=== PATIENT | female | born 1950 | race Hispanic/Latino ===

== ENCOUNTER 2022-01-12 10:06 | Day surgery (SDC) | payer OTHER ==
[2022-01-12] VITALS (21 sets, daily range): BP systolic 122–157; BP diastolic 71–97
[~2022-01-12 10:06] MED LIST: ACET650S28 PEG; AMLO-258 PEG; ASPI-1197 PEG; ATOR40TA69 PEG; CARV12.511 PEG; CLOP75TA14 PEG; DONE5TAB33 PEG; ENOX40DI9 SQ; ESOM40SU PEG; FLUO40CA7 PEG; INSLAN SQ; LACT10SO9 PEG; LEVO88TA7 PEG; LOSA100T58 PEG; METO10DI2 IV; RIFA200T2 PEG
[2022-01-12] MEDS ORDERED: 0.9%NACL 1000ML 1,000 ML IV ONE (10:48)
[2022-01-12 11:44] LABS: INR 0.97 (0.85-1.15); PROTHROMBIN TIME 10.6 SEC (9.6-11.6)
[2022-01-12 11:45] LABS: PARTIAL THROMBOPLASTIN TIME 25.1 SEC (26.3-35.5)
[2022-01-12] MEDS ORDERED: LIDOCAINE PF 100MG/5ML (2%) SYRINGE 5ML ONE (14:58)
[2022-01-12] MEDS ORDERED: PROPOFOL 10 MG/ML 20ML VIAL IV ONE (14:58)
[2022-01-12] MEDS ORDERED: ROCURONIUM 10MG/1ML SYR 10 MG/ML ML ONE (14:58)
[2022-01-12] MEDS ORDERED: CEFAZOLIN SODIUM 2 GM VIAL IV ONE (15:00)
[2022-01-12] MEDS ORDERED: EPHEDRINE SULFATE 50 MG/ML AMPULE ONE (15:13)
[2022-01-12] MEDS ORDERED: FENTANYL CITRATE PF 50 MCG/1 ML 2ML VIAL ONE (15:37)
[2022-01-12] MEDS ORDERED: BUPIVACAINE/PF 0.25% 30ML VIAL IJ ONE (16:10)
[2022-01-12] MEDS ORDERED: ESMOLOL HCL 10 MG/ML 10 ML VIAL ONE (17:09)
[2022-01-12] MEDS ORDERED: MORPHINE 2 MG SYG ONE (17:54)
[2022-01-12] MEDS ORDERED: MORPHINE 2 MG SYG IVP ONE (18:00)
== END 2022-01-12 21:50 | disposition home or self-care (01) ==
LOC: DAH 10:06
PROVIDERS: ATTEND Student in an Organized Health Care Education/Training Program
DX: K94.23 Gastrostomy malfunction (principal); R13.12 Dysphagia, oropharyngeal phase; E66.01 Morbid (severe) obesity due to excess calories; E11.9 Type 2 diabetes mellitus without complications; D64.9 Anemia, unspecified; I10 Essential (primary) hypertension; E78.5 Hyperlipidemia, unspecified; E03.9 Hypothyroidism, unspecified; Z79.4 Long term (current) use of insulin; Z79.82 Long term (current) use of aspirin; Z79.890 Hormone replacement therapy; Z79.899 Other long term (current) drug therapy; Z79.01 Long term (current) use of anticoagulants; Z86.73 Personal history of transient ischemic attack (TIA), and cerebral infarction without residual deficits
CPT/HCPCS: 43999; 87426; 85610; 85730; 82948 ×2; 36415; 44300; A4663; A4452; A4649 ×2; J0690; J3010; J7030; J3490 ×3; J2001; J2704; A4930; A4215; A4223; A4335; A4222; A4221; A4216; A4520

== ENCOUNTER 2022-02-28 19:25 | Emergency (ER) | payer MEDICARE ==
[~2022-02-28] VITALS: Ht 152.4 cm; Wt 54.0 kg
[2022-02-28 19:44] LABS: BASOPHILS % (AUTO) 0.8 % (0.0-5.0); EOSINOPHILS % (AUTO) 2.6 % (0.0-8.0); HEMATOCRIT 38.7 % (36-48); MEAN CORPUSCULAR HGB CONC 32.6 g/dL (32.0-36.0); MEAN CORPUSCULAR VOLUME 82.9 fL (79-99); MONOCYTES % (AUTO) 6.9 % (3.0-13.0); NEUTROPHILS % (AUTO) 72.3 % (40.0-77.0); PLATELET COUNT (AUTO) 256 K/uL (130-400); RED BLOOD CELL COUNT(AUTO) 4.67 MIL/uL (4.00-5.50); WHITE BLOOD COUNT (AUTO) 10.7 K/uL (4.8-10.8)
[2022-02-28 19:51] LABS: APPEARANCE,URINE CLOUDY (CLEAR); BILIRUBIN,URINE NEGATIVE (NEGATIVE); COLOR,URINE LIGHT-YELLOW (YELLOW); GLUCOSE, URINE (UA) NEGATIVE (NEGATIVE); KETONES,URINE NEGATIVE (NEGATIVE); LEUKOCYTE ESTERASE ,URINE 250 Leu/uL (NEGATIVE); NITRATE,URINE NEGATIVE (NEGATIVE); OCCULT BLOOD,URINE NEGATIVE (NEGATIVE); PROTEIN,URINE NEGATIVE (NEGATIVE); UROBILINOGEN,URINE 0.2 mg/dL (0.2-1.0)
[2022-02-28 19:58] LABS: CARBON DIOXIDE 32 mmol/L (21-32); CHLORIDE 95 mmol/L (101-111); CREATININE 0.4 mg/dL (0.5-1.5); GLOMERULAR FILTR. RATE CALC 168 mL/min (>60); GLUCOSE,RANDOM 116 mg/dL (70-105); POTASSIUM 4.4 mmol/L (3.5-5.1); SODIUM SERUM 131 mmol/L (136-145); UREA NITROGEN, BLOOD 16 mg/dL (7-18)
[2022-02-28 20:00] LABS: BACTERIA,URINE FEW /HPF (None Seen); MUCUS,URINE RARE LPF (None Seen); SQUAMOUS EPITHELIAL CELL,UR RARE /HPF (0-2)
[2022-02-28 20:03] LABS: ALANINE AMINOTRANSFERASE 31 U/L (12-78); ASPARTATE AMINOTRANSFERASE 17 U/L (10-37); TOTAL PROTEIN, SERUM 6.5 g/dL (6.0-8.3)
[2022-02-28 20:06] LABS: AMMONIA < 6 umol/L (11-32)
[2022-02-28] MEDS ORDERED: CEFTRIAXONE 1G VIAL IVP ONE (20:30)
[2022-02-28] MEDS ORDERED: 0.9%NACL 1000ML 1,000 ML IV SCH (20:30)
[2022-02-28 20:53] LABS: CRP QUANTITATIVE < 2.00 mg/L (0.00-9.0)
[2022-02-28] MEDS ORDERED: CEFU500T67 PO (20:59)
[2022-02-28 22:46] VITALS: BP 124/66
== END 2022-02-28 22:48 | disposition home or self-care (01) ==
LOC: EDH 19:25
DX: N39.0 Urinary tract infection, site not specified (principal); E86.0 Dehydration; I25.10 Atherosclerotic heart disease of native coronary artery without angina pectoris; F03.90 Unspecified dementia, unspecified severity, without behavioral disturbance, psychotic disturbance, mood disturbance, and anxiety; E11.9 Type 2 diabetes mellitus without complications; I10 Essential (primary) hypertension; E66.01 Morbid (severe) obesity due to excess calories; Z68.23 Body mass index [BMI] 23.0-23.9, adult; Z90.49 Acquired absence of other specified parts of digestive tract; Z98.890 Other specified postprocedural states; Z86.73 Personal history of transient ischemic attack (TIA), and cerebral infarction without residual deficits; Z79.82 Long term (current) use of aspirin; Z79.899 Other long term (current) drug therapy; Z79.4 Long term (current) use of insulin; Z88.8 Allergy status to other drugs, medicaments and biological substances
CPT/HCPCS: 99285; 96374; 71045; 96361; 84484; 80053; 82140; 85025; 87077; 87088; 87186; 83605; 86140; 81001; 36415; 93005; J7030; J0696

== ENCOUNTER 2022-03-21 17:44 | Inpatient (IN) | payer MEDICARE ==
[~2022-03-21] VITALS: Ht 152.4 cm; Wt 60.6 kg
[~2022-03-21 17:44] MED LIST changes: +CEFU500T67 PO; +CLOP-31 PEG; -CLOP75TA14 PEG
[2022-03-21 18:24] LABS: BASOPHILS % (AUTO) 0.8 % (0.0-5.0); LYMPHOCYTES % (AUTO) 11.4 % (21.0-51.0); MEAN CORPUSCULAR HEMOGLOBIN 26.2 pg (27.0-33.0); MEAN CORPUSCULAR HGB CONC 32.3 g/dL (32.0-36.0); MEAN CORPUSCULAR VOLUME 81.3 fL (79-99); MONOCYTES % (AUTO) 5.9 % (3.0-13.0); NEUTROPHILS % (AUTO) 80.4 % (40.0-77.0); PLATELET COUNT (AUTO) 340 K/uL (130-400); RED BLOOD CELL COUNT(AUTO) 4.92 MIL/uL (4.00-5.50); RED CELL DISTRIBUTION WIDTH 14.2 % (11.0-15.5); WHITE BLOOD COUNT (AUTO) 12.1 K/uL (4.8-10.8)
[2022-03-21 18:28] LABS: APPEARANCE,URINE CLOUDY (CLEAR); BILIRUBIN,URINE NEGATIVE (NEGATIVE); COLOR,URINE YELLOW (YELLOW); GLUCOSE, URINE (UA) NEGATIVE (NEGATIVE); KETONES,URINE 5 mg/dL (NEGATIVE); LEUKOCYTE ESTERASE ,URINE 250 Leu/uL (NEGATIVE); NITRATE,URINE NEGATIVE (NEGATIVE); OCCULT BLOOD,URINE NEGATIVE (NEGATIVE); PROTEIN,URINE 20 mg/dL (NEGATIVE)
[2022-03-21 18:36] LABS: BACTERIA,URINE MOD /HPF (None Seen); CALCIUM OXALATE CRYSTALS,UR FEW /LPF (None Seen); MUCUS,URINE MOD LPF (None Seen); WBC,URINE 51-100 /HPF (0-1)
[2022-03-21] MEDS ORDERED: MEROPENEM 1 GM VIAL IVP SCH (19:00)
[2022-03-21] MEDS ORDERED: CEFTRIAXONE 1G VIAL IVP ONE (19:00)
[2022-03-21] MEDS ORDERED: 0.9%NACL 1000ML 1,000 ML IV ONE (19:00)
[2022-03-21 19:23] LABS: CREATININE 0.5 mg/dL (0.5-1.5); POTASSIUM 3.2 mmol/L (3.5-5.1)
[2022-03-21 19:28] LABS: ALBUMIN 2.9 g/dL (3.5-5.0); TOTAL PROTEIN, SERUM 6.4 g/dL (6.0-8.3)
[2022-03-21] MEDS ORDERED: ACETAMINOPHEN 650 MG SUPPOSITORY RC PRN (21:00)
[2022-03-21] MEDS ORDERED: ONDANSETRON 4MG INJ IV PRN (21:00)
[2022-03-21] MEDS ORDERED: MORPHINE 2 MG SYG IV PRN (21:00)
[2022-03-21] MEDS ORDERED: MORPHINE 4 MG SYG IV PRN (21:00)
[2022-03-21] MEDS: 0.9%NACL 1000ML 1,000 ML IV SCH (21:38)
[2022-03-21] MEDS ORDERED: POTASSIUM CHLORIDE 20MEQ/100ML 100 ML IV PRN (22:30)
[2022-03-21] MEDS ORDERED: LIDOCAINE HCL-MPF 1% 2ML VIAL IV PRN (22:30)
[2022-03-21] MEDS ORDERED: KCL 20 MEQ ERTAB PO PRN (22:30)
[2022-03-22] VITALS (7 sets, daily range): BP systolic 142–189; BP diastolic 70–91
[2022-03-22] MEDS ORDERED: ONDA4TAB10 PO (01:21)
[2022-03-22] MEDS ORDERED: METF-444 PO (01:21)
[2022-03-22] MEDS ORDERED: DONE10TA43 PO (01:21)
[2022-03-22] MEDS ORDERED: ONDA8TAB12 PO (01:21)
[2022-03-22] MEDS ORDERED: LOSA50TA64 PO (01:21)
[2022-03-22] MEDS ORDERED: LACT10SO9 PO (01:21)
[2022-03-22] MEDS ORDERED: AMLO-257 PO (01:21)
[2022-03-22] MEDS ORDERED: FLUO20SO4 PO (01:21)
[2022-03-22] MEDS: MEROPENEM 500 MG VIAL IV SCH ×3 (03:29→18:33)
[2022-03-22] MEDS: POTASSIUM CHLORIDE 10% ELIXIR 20 MEQ/15 ML UDCUP PO PRN ×2 (03:29→04:11)
[2022-03-22 05:04] LABS: BASOPHILS % (AUTO) 0.4 % (0.0-5.0); EOSINOPHILS % (AUTO) 0.4 % (0.0-8.0); HEMATOCRIT 37.2 % (36-48); LYMPHOCYTES % (AUTO) 10.7 % (21.0-51.0); MEAN CORPUSCULAR HEMOGLOBIN 26.3 pg (27.0-33.0); MEAN CORPUSCULAR HGB CONC 32.8 g/dL (32.0-36.0); MEAN CORPUSCULAR VOLUME 80.3 fL (79-99); MONOCYTES % (AUTO) 6.4 % (3.0-13.0); NEUTROPHILS % (AUTO) 81.6 % (40.0-77.0); PLATELET COUNT (AUTO) 353 K/uL (130-400); RED BLOOD CELL COUNT(AUTO) 4.63 MIL/uL (4.00-5.50); WHITE BLOOD COUNT (AUTO) 17.2 K/uL (4.8-10.8)
[2022-03-22 05:24] LABS: CREATININE 0.5 mg/dL (0.5-1.5); MAGNESIUM 1.6 mg/dL (1.80-2.40); PHOSPHORUS 2.8 mg/dL (2.5-4.9); POTASSIUM 4.7 mmol/L (3.5-5.1)
[2022-03-22 05:29] LABS: HEMOGLOBIN A1C 6.3 % (4.0-6.0)
[2022-03-22] MEDS ORDERED: MAGNESIUM 2GM PREMIX 50ML 50 ML IV ONE (05:47)
[2022-03-22] MEDS ORDERED: MAGNESIUM 2GM PREMIX 50ML 50 ML IV PRN (06:00)
[2022-03-22] MEDS: INSULIN HUMULIN R 100 UNIT/ML 3ML SQ SCH ×4 (06:21→23:45)
[2022-03-22] MEDS ORDERED: ENOXAPARIN SODIUM 40 MG/0.4 ML SYRINGE SQ SCH (09:00)
[2022-03-22] MEDS: ASCORBIC ACID 500 MG TAB PO SCH ×2 (09:05→19:55)
[2022-03-22] MEDS: ZINC SULFATE 220 CAPSULE PO SCH (09:05)
[2022-03-22] MEDS: FAMOTIDINE 20MG VIAL IV SCH (09:07)
[2022-03-22] MEDS ORDERED: CLOTRIMAZOLE/BETAMETHASONE DIP 45 GM CREAM.GM. TP SCH (12:30)
[2022-03-22] MEDS: BALSAM PERU/CASTOR OIL 60 GM TUBE TP SCH ×2 (13:19→20:09)
[2022-03-22] MEDS ORDERED: LACTULOSE 20 GM/30 ML UDCUP PO PRN (14:00)
[2022-03-22] MEDS: 0.9%NACL 1000ML 1,000 ML IV SCH (17:19)
[2022-03-22] MEDS: CARVEDILOL 12.5 MG TABLET PO SCH (19:55)
[2022-03-22] MEDS: ATORVASTATIN 40 MG TABLET PEG SCH (19:55)
[2022-03-22] MEDS: CLOTRIMAZOLE/BETAMETHASONE DIP 45 GM CREAM.GM. TP SCH (20:09)
[2022-03-22] MEDS ORDERED: NITROGLYCERIN 1GM OINT 1 INCH/1GM TD ONE ×2 (22:07→22:30)
[2022-03-22] MEDS ORDERED: LABETALOL 20MG VIAL IV PRN (22:30)
[2022-03-23] VITALS (15 sets, daily range): BP systolic 112–169; BP diastolic 63–103
[2022-03-23] MEDS: MEROPENEM 500 MG VIAL IV SCH ×3 (02:06→18:12)
[2022-03-23] MEDS: INSULIN HUMULIN R 100 UNIT/ML 3ML SQ SCH ×3 (05:01→18:00)
[2022-03-23] MEDS: LEVOTHYROXINE 88 MCG TABLET PEG SCH (05:37)
[2022-03-23 05:38] LABS: BASOPHILS % (AUTO) 0.9 % (0.0-5.0); HEMATOCRIT 34.7 % (36-48); LYMPHOCYTES % (AUTO) 24.1 % (21.0-51.0); MEAN CORPUSCULAR HEMOGLOBIN 26.4 pg (27.0-33.0); MEAN CORPUSCULAR HGB CONC 32.3 g/dL (32.0-36.0); MEAN CORPUSCULAR VOLUME 81.6 fL (79-99); MONOCYTES % (AUTO) 7.2 % (3.0-13.0); NEUTROPHILS % (AUTO) 66.4 % (40.0-77.0); PLATELET COUNT (AUTO) 338 K/uL (130-400); RED BLOOD CELL COUNT(AUTO) 4.25 MIL/uL (4.00-5.50); RED CELL DISTRIBUTION WIDTH 14.4 % (11.0-15.5); WHITE BLOOD COUNT (AUTO) 7.8 K/uL (4.8-10.8)
[2022-03-23 05:54] LABS: INR 1.05 (0.85-1.15); PROTHROMBIN TIME 11.4 SEC (9.6-11.6)
[2022-03-23 06:11] LABS: CREATININE 0.4 mg/dL (0.5-1.5); MAGNESIUM 1.8 mg/dL (1.80-2.40); POTASSIUM 3.4 mmol/L (3.5-5.1)
[2022-03-23] MEDS ORDERED: LIDOCAINE HCL 1% 20 ML VIAL ONE (08:47)
[2022-03-23] MEDS ORDERED: IOHEXOL-350 50ML VIAL IV ONE (08:47)
[2022-03-23] MEDS ORDERED: PANTOPRAZOLE 40 MG TAB DR PO SCH (09:00)
[2022-03-23] MEDS: ASCORBIC ACID 500 MG TAB PO SCH ×2 (09:00→20:34)
[2022-03-23] MEDS: DONEPEZIL HCL 5 MG TAB PO SCH ×2 (09:00→09:59)
[2022-03-23] MEDS: LOSARTAN 50 MG TABLET PO SCH ×2 (09:00→10:00)
[2022-03-23] MEDS: ZINC SULFATE 220 CAPSULE PO SCH (09:00)
[2022-03-23] MEDS: CLOPIDOGREL 75MG TAB PEG SCH (09:00)
[2022-03-23] MEDS: CARVEDILOL 12.5 MG TABLET PO SCH ×3 (09:00→20:34)
[2022-03-23] MEDS: AMLODIPINE 5 MG TAB PO SCH ×2 (09:00→10:00)
[2022-03-23] MEDS: ASPIRIN 81MG CHEW TAB PEG SCH (09:00)
[2022-03-23] MEDS: FAMOTIDINE 20MG VIAL IV SCH (10:00)
[2022-03-23] MEDS: BALSAM PERU/CASTOR OIL 60 GM TUBE TP SCH ×3 (10:00→20:35)
[2022-03-23] MEDS: CLOTRIMAZOLE/BETAMETHASONE DIP 45 GM CREAM.GM. TP SCH ×2 (10:01→20:35)
[2022-03-23] MEDS: POTASSIUM CHLORIDE 10% ELIXIR 20 MEQ/15 ML UDCUP PO PRN ×2 (11:30→13:19)
[2022-03-23] MEDS: ATORVASTATIN 40 MG TABLET PEG SCH (20:34)
[2022-03-24] MEDS: MEROPENEM 500 MG VIAL IV SCH ×2 (02:33→12:08)
[2022-03-24 04:08] VITALS: BP 141/78
[2022-03-24 05:22] LABS: EOSINOPHILS % (AUTO) 1.6 % (0.0-8.0); HEMATOCRIT 33.2 % (36-48); LYMPHOCYTES % (AUTO) 16.9 % (21.0-51.0); MEAN CORPUSCULAR HEMOGLOBIN 26.4 pg (27.0-33.0); MEAN CORPUSCULAR HGB CONC 32.2 g/dL (32.0-36.0); MEAN CORPUSCULAR VOLUME 81.8 fL (79-99); MONOCYTES % (AUTO) 7.8 % (3.0-13.0); NEUTROPHILS % (AUTO) 72.1 % (40.0-77.0); PLATELET COUNT (AUTO) 314 K/uL (130-400); RED BLOOD CELL COUNT(AUTO) 4.06 MIL/uL (4.00-5.50); RED CELL DISTRIBUTION WIDTH 14.3 % (11.0-15.5); WHITE BLOOD COUNT (AUTO) 9.3 K/uL (4.8-10.8)
[2022-03-24 05:36] LABS: B-TYPE NATRIURETIC PEPTIDE 48 pg/mL (0-100)
[2022-03-24 05:42] LABS: CREATININE 0.5 mg/dL (0.5-1.5); POTASSIUM 3.6 mmol/L (3.5-5.1)
[2022-03-24] MEDS: INSULIN HUMULIN R 100 UNIT/ML 3ML SQ SCH ×4 (05:47→18:00)
[2022-03-24] MEDS: POTASSIUM CHLORIDE 10% ELIXIR 20 MEQ/15 ML UDCUP PO PRN ×2 (05:57→09:28)
[2022-03-24] MEDS: LEVOTHYROXINE 88 MCG TABLET PEG SCH (05:57)
[2022-03-24 08:00] VITALS: BP 142/77
[2022-03-24] MEDS: LOSARTAN 50 MG TABLET PO SCH (09:22)
[2022-03-24] MEDS: ASPIRIN 81MG CHEW TAB PEG SCH (09:23)
[2022-03-24] MEDS: ZINC SULFATE 220 CAPSULE PO SCH (09:23)
[2022-03-24] MEDS: AMLODIPINE 5 MG TAB PO SCH (09:23)
[2022-03-24] MEDS: CLOPIDOGREL 75MG TAB PEG SCH (09:24)
[2022-03-24] MEDS: CARVEDILOL 12.5 MG TABLET PO SCH (09:24)
[2022-03-24] MEDS: FAMOTIDINE 20MG VIAL IV SCH (09:24)
[2022-03-24] MEDS: BALSAM PERU/CASTOR OIL 60 GM TUBE TP SCH (09:25)
[2022-03-24] MEDS: ASCORBIC ACID 500 MG TAB PO SCH (09:25)
[2022-03-24] MEDS: CLOTRIMAZOLE/BETAMETHASONE DIP 45 GM CREAM.GM. TP SCH (09:26)
[2022-03-24 11:56] VITALS: BP 133/75
[2022-03-24] MEDS ORDERED: ZINC220C6 PO (13:27)
[2022-03-24] MEDS ORDERED: ASCO500T20 PO (13:27)
[2022-03-24] MEDS ORDERED: BALS60OI TP (13:27)
[2022-03-24] MEDS ORDERED: Clotrimazole/Betamethasone Dip TP (13:27)
[2022-03-24] MEDS ORDERED: CEFU500T67 PO (13:27)
[2022-03-24] MEDS ORDERED: METO5SOL23 JT (15:46)
[2022-03-24 16:00] VITALS: BP 152/87
== END 2022-03-24 18:55 | disposition home or self-care (01) | DRG 394 ==
LOC: EDH 17:44 → EDHIP 20:57 → 3AH 23:25
PROVIDERS: ADMIT Internal Medicine; ATTEND Internal Medicine
PROC: 0D2DXUZ Change Feeding Device in Lower Intestinal Tract, External Approach (ICD-10-PCS; principal; 2022-03-23)
DX: K94.13 Enterostomy malfunction (principal); E46 Unspecified protein-calorie malnutrition; N39.0 Urinary tract infection, site not specified; I69.354 Hemiplegia and hemiparesis following cerebral infarction affecting left non-dominant side; E87.6 Hypokalemia; E11.9 Type 2 diabetes mellitus without complications; I10 Essential (primary) hypertension; E03.9 Hypothyroidism, unspecified; K59.00 Constipation, unspecified; L89.322 Pressure ulcer of left buttock, stage 2; L89.312 Pressure ulcer of right buttock, stage 2; Y83.8 Other surgical procedures as the cause of abnormal reaction of the patient, or of later complication, without mention of misadventure at the time of the procedure; E78.00 Pure hypercholesterolemia, unspecified; Y82.8 Other medical devices associated with adverse incidents; Z74.01 Bed confinement status; Z68.26 Body mass index [BMI] 26.0-26.9, adult; Z86.19 Personal history of other infectious and parasitic diseases; Z87.440 Personal history of urinary (tract) infections
CPT/HCPCS: 36415; 49452; 71045; 74176; 80048; 80053; 81001; 82948; 83036; 83690; 83735; 83880; 84100; 84145; 84443; 84484; 85025; 85610; 85730; 87040; 87070; 87076; 87077; 87088; 87186; 93005; 93306; 93356; C1769; G0378; J1644; J1650; J2185; J3475; J3490; Q9967

== ENCOUNTER 2022-04-04 12:55 | Observation (INO) | payer MEDICARE ==
[~2022-04-04] VITALS: Ht 157.5 cm; Wt 54.1 kg
[~2022-04-04 12:55] MED LIST changes: +AMLO-257 PO; -AMLO-258 PEG; +ASCO500T20 PO; +BALS60OI TP; +Clotrimazole/Betamethasone Dip TP; +DONE10TA43 PO; -DONE5TAB33 PEG; -ENOX40DI9 SQ; +FLUO20SO4 PO; -FLUO40CA7 PEG; -INSLAN SQ; -LACT10SO9 PEG; +LACT10SO9 PO; -LOSA100T58 PEG; +LOSA50TA64 PO; +METF-444 PO; -METO10DI2 IV; +METO5SOL23 JT; +ONDA8TAB12 PO; -RIFA200T2 PEG; +ZINC220C6 PO
[2022-04-04] MEDS ORDERED: DIATR MEGLU/DIATRIZOATE SODIUM 30 ML BOTTLE ONE (13:05)
[2022-04-04] MEDS ORDERED: LIPASE/PROTEASE/AMYLASE 5000/17000/24000 PO ONE (16:00)
[2022-04-04 18:27] LABS: BASOPHILS % (AUTO) 0.9 % (0.0-5.0); HEMATOCRIT 37.8 % (36-48); LYMPHOCYTES % (AUTO) 21.4 % (21.0-51.0); MEAN CORPUSCULAR HEMOGLOBIN 26.2 pg (27.0-33.0); MEAN CORPUSCULAR HGB CONC 32.8 g/dL (32.0-36.0); MEAN CORPUSCULAR VOLUME 79.7 fL (79-99); NEUTROPHILS % (AUTO) 66.3 % (40.0-77.0); PLATELET COUNT (AUTO) 272 K/uL (130-400); RED BLOOD CELL COUNT(AUTO) 4.74 MIL/uL (4.00-5.50); RED CELL DISTRIBUTION WIDTH 14.6 % (11.0-15.5); WHITE BLOOD COUNT (AUTO) 7.4 K/uL (4.8-10.8)
[2022-04-04 18:38] LABS: CREATININE 0.4 mg/dL (0.5-1.5); POTASSIUM 4.2 mmol/L (3.5-5.1)
[2022-04-04 18:42] LABS: ALBUMIN 3.1 g/dL (3.5-5.0)
[2022-04-04] MEDS ORDERED: NITROGLYCERIN 0.4 MG SL TAB SL PRN (19:00)
[2022-04-04] MEDS ORDERED: ONDANSETRON 4MG INJ IV PRN (19:00)
[2022-04-04] MEDS ORDERED: 0.9%NACL 1000ML 1,000 ML IV SCH (19:00)
[2022-04-04] MEDS ORDERED: GLUCAGON 1MG KIT 1 MG ML IM PRN (19:00)
[2022-04-04] MEDS ORDERED: DEXTROSE 50%-WATER 50 ML DISP.SYRIN IV PRN (19:00)
[2022-04-04 20:36] LABS: PROTHROMBIN TIME 10.9 SEC (9.6-11.6)
[2022-04-04 20:37] LABS: PARTIAL THROMBOPLASTIN TIME 25.1 SEC (26.3-35.5)
[2022-04-04] MEDS: FAMOTIDINE 20MG VIAL IV SCH (20:59)
[2022-04-04] MEDS: INSULIN HUMULIN R 100 UNIT/ML 3ML SQ SCH (23:49)
[2022-04-05] MEDS ORDERED: DEXTROSE 5 % AND 0.9 % NACL 1,000 ML IV ONE (00:47)
[2022-04-05] MEDS: DEXTROSE 5 % AND 0.9 % NACL 1,000 ML IV SCH ×2 (00:49→18:19)
[2022-04-05 03:36] VITALS: BP 146/76
[2022-04-05] MEDS: INSULIN HUMULIN R 100 UNIT/ML 3ML SQ SCH ×3 (05:53→18:00)
[2022-04-05 06:09] LABS: EOSINOPHILS % (AUTO) 2.3 % (0.0-8.0); HEMATOCRIT 36.7 % (36-48); LYMPHOCYTES % (AUTO) 19.7 % (21.0-51.0); MEAN CORPUSCULAR HGB CONC 32.2 g/dL (32.0-36.0); MONOCYTES % (AUTO) 7.3 % (3.0-13.0); NEUTROPHILS % (AUTO) 69.3 % (40.0-77.0); PLATELET COUNT (AUTO) 276 K/uL (130-400); RED BLOOD CELL COUNT(AUTO) 4.53 MIL/uL (4.00-5.50); RED CELL DISTRIBUTION WIDTH 14.6 % (11.0-15.5); WHITE BLOOD COUNT (AUTO) 8.3 K/uL (4.8-10.8)
[2022-04-05 06:22] LABS: CREATININE 0.4 mg/dL (0.5-1.5); MAGNESIUM 1.8 mg/dL (1.80-2.40); POTASSIUM 3.5 mmol/L (3.5-5.1); TOTAL PROTEIN, SERUM 6.7 g/dL (6.0-8.3)
[2022-04-05 07:50] VITALS: BP 152/74
[2022-04-05] MEDS: FAMOTIDINE 20MG VIAL IV SCH ×2 (08:51→20:04)
[2022-04-05] MEDS: ENOXAPARIN SODIUM 30 MG/0.3 ML SQ SCH (09:34)
[2022-04-05 11:00] VITALS: BP 160/76
[2022-04-05 16:09] VITALS: BP 157/77
[2022-04-05 21:04] VITALS: BP 159/87
[2022-04-05 23:47] VITALS: BP 158/78
[2022-04-06] MEDS: DEXTROSE 5 % AND 0.9 % NACL 1,000 ML IV SCH ×2 (03:55→19:48)
[2022-04-06 04:01] VITALS: BP 152/82
[2022-04-06] MEDS: INSULIN HUMULIN R 100 UNIT/ML 3ML SQ SCH ×4 (06:00→19:40)
[2022-04-06 08:00] VITALS: BP 152/94
[2022-04-06] MEDS ORDERED: DIATR MEGLU/DIATRIZOATE SODIUM 30 ML BOTTLE ONE (08:49)
[2022-04-06] MEDS ORDERED: IOHEXOL 350 MG/ML 100ML INFUS..BTL IV ONE (08:49)
[2022-04-06] MEDS: ENOXAPARIN SODIUM 30 MG/0.3 ML SQ SCH (09:00)
[2022-04-06] MEDS: FAMOTIDINE 20MG VIAL IV SCH ×2 (09:00→19:39)
[2022-04-06] MEDS ORDERED: AMLO-257 PO (10:49)
[2022-04-06] MEDS ORDERED: CLOT15CR5 TP (10:50)
[2022-04-06 12:00] VITALS: BP 166/81
[2022-04-06 16:00] VITALS: BP 168/79
[2022-04-06] MEDS: CLOTRIMAZOLE 30 GM CREAM.GM. TP SCH ×2 (19:39→20:10)
[2022-04-06 20:19] VITALS: BP 166/78
[2022-04-06 23:44] VITALS: BP 152/77
[2022-04-07 04:26] VITALS: BP 136/74
[2022-04-07] MEDS: INSULIN HUMULIN R 100 UNIT/ML 3ML SQ SCH ×3 (05:31→18:00)
[2022-04-07] MEDS: DEXTROSE 5 % AND 0.9 % NACL 1,000 ML IV SCH (05:32)
[2022-04-07] MEDS: CLOTRIMAZOLE 30 GM CREAM.GM. TP SCH (07:55)
[2022-04-07] MEDS: FAMOTIDINE 20MG VIAL IV SCH (07:55)
[2022-04-07] MEDS: ENOXAPARIN SODIUM 30 MG/0.3 ML SQ SCH (07:55)
[2022-04-07 07:57] VITALS: BP 155/60
[2022-04-07 11:58] VITALS: BP 139/67
[2022-04-07 16:00] VITALS: BP 179/89
== END 2022-04-07 18:55 | disposition home or self-care (01) ==
LOC: EDH 12:55 → EDHIP 18:49 → INTOOBSV 18:49 → 4DH 04-05 02:55
PROVIDERS: ADMIT Internal Medicine; ATTEND Internal Medicine
DX: K94.23 Gastrostomy malfunction (principal); Z20.822 Contact with and (suspected) exposure to COVID-19; I10 Essential (primary) hypertension; E11.43 Type 2 diabetes mellitus with diabetic autonomic (poly)neuropathy; N28.9 Disorder of kidney and ureter, unspecified; E03.9 Hypothyroidism, unspecified; K31.84 Gastroparesis; E78.00 Pure hypercholesterolemia, unspecified; I69.354 Hemiplegia and hemiparesis following cerebral infarction affecting left non-dominant side; K57.90 Diverticulosis of intestine, part unspecified, without perforation or abscess without bleeding; Z74.01 Bed confinement status; Z79.899 Other long term (current) drug therapy
CPT/HCPCS: 96374; 99285; 80053 ×2; 85025 ×2; 85610; 85730; 82948 ×12; 36415 ×2; 87635; 74018; 93005; 96376 ×3; 96372 ×2; 96361 ×3; 83735; 74176; 76770; G0378 ×71; C9803; Q9963 ×2; J3490 ×5; J7042; J1650 ×2; J2405; Q9967

== ENCOUNTER 2022-05-04 11:27 | Emergency (ER) | payer MEDICARE ==
[~2022-05-04] VITALS: Ht 165.1 cm; Wt 65.8 kg
[~2022-05-04 11:27] MED LIST changes: -ACET650S28 PEG; -BALS60OI TP; -CEFU500T67 PO; +CLOT15CR5 TP; -ESOM40SU PEG; -LACT10SO9 PO; -ZINC220C6 PO
[2022-05-04] MEDS ORDERED: DIATR MEGLU/DIATRIZOATE SODIUM 30 ML BOTTLE ONE (13:39)
[2022-05-04 14:31] VITALS: BP 139/76
== END 2022-05-04 16:31 | disposition home or self-care (01) ==
LOC: EDH 11:27
DX: K94.23 Gastrostomy malfunction (principal); E11.9 Type 2 diabetes mellitus without complications; E78.00 Pure hypercholesterolemia, unspecified; F03.90 Unspecified dementia, unspecified severity, without behavioral disturbance, psychotic disturbance, mood disturbance, and anxiety; I10 Essential (primary) hypertension; Z79.02 Long term (current) use of antithrombotics/antiplatelets; Z79.82 Long term (current) use of aspirin; Z79.84 Long term (current) use of oral hypoglycemic drugs; Z79.899 Other long term (current) drug therapy; Y73.8 Miscellaneous gastroenterology and urology devices associated with adverse incidents, not elsewhere classified; Y92.89 Other specified places as the place of occurrence of the external cause
CPT/HCPCS: 99284; 43762; 74018; Q9963

== ENCOUNTER → 2022-09-07 | Outpatient (CLI) | payer MEDICARE ==
[~2022-09-07] MED LIST changes: +CEPH500B PO; +POLY17PO4 PO
== END | disposition home or self-care (01) ==
LOC: RAH 13:39
PROVIDERS: ATTEND Internal Medicine Medical Oncology
DX: N28.1 Cyst of kidney, acquired (principal); D41.02 Neoplasm of uncertain behavior of left kidney
CPT/HCPCS: 76770

== ENCOUNTER 2024-10-11 16:49 | Emergency (ER) | payer MEDICARE ==
[~2024-10-11] VITALS: Ht 152.4 cm; Wt 68.0 kg
[~2024-10-11 16:49] MED LIST changes: +FLUO20SO2 PO; -FLUO20SO4 PO; +ONDA-245 PO; -ONDA8TAB12 PO
--- NOTE | 2024-10-11 16:57 | ERN ---
General Chief Complaint: Flu Symptoms Stated Complaint: FLU LIKE SYMPTOMS Time Seen by MD: 16:54 History of Present Illness Initial Comments 73-year-old female brought in by EMS for dyspnea. Patient reports about two weeks ago she had COVID. Since then she has continued with persistent cough. She feels like she is wheezing. She gets dyspneic at times. She denies chest pain. She is unsure when her last fever was but she does get chills. Patient brought in by EMS with stable oxygen saturation and stable vital signs. Allergies: Coded Allergies: prednisolone (Unverified Allergy, Intermediate, RASH, 02/28/22) Home Meds Active Scripts Promethazine HCl/Codeine (Promethazine-Codeine Syrup) 6.25 Mg-10 Mg/5 Ml Syrup, 5 ML PO Q4HPRN PRN for cough, #120 ML 0 Refills Prov:HERMELINDA FERNANDEZ DO 10/11/24 Nebulizer (Nebulizer) 1 Each Each, EACH MC, #1 Prov:HERMELINDA FERNANDEZ DO 10/11/24 Albuterol Sulfate (Ventolin Hfa) 90 Mcg Hfa.aer.ad, 2 PUFF IH Q4HPRN PRN for wheezing for 30 Days, #18 GM 0 Refills Prov:HERMELINDA FERNANDEZ DO 10/11/24 Albuterol Sulfate (Albuterol Sulfate) 2.5 Mg/3 Ml (0.083 %) Vial.neb, 1 VIAL NEB Q4HPRN PRN for wheezing, #150 ML 0 Refills Prov:HERMELINDA FERNANDEZ DO 10/11/24 Azithromycin (Azithromycin) 250 Mg Tablet, 1 TAB PO AD for 5 Days, #6 TAB 0 Refills 2 the first day followed by 1 for days 2-5 Prov:HERMELINDA FERNANDEZ DO 10/11/24 Polyethylene Glycol 3350 (Miralax) 17 Gm Powd.pack, 17 GM PO DAILY, #1 CANISTER Prov:JEOVANY GREGG 07/06/22 Cephalexin Monohydrate (Keflex) 500 Mg Cap, 500 MG PO QID for 7 Days, #28 CAP Prov:JEOVANY GREGG 07/06/22 Clotrimazole/Betamethasone Dip (Clotrimazole-Betamethasone Crm) 15 Gm Cream..g., 15 GM TP DAILY for 10 Days, #1 TUBE Prov:ANA LILIA ALVES NP 04/06/22 Amlodipine Besylate (Amlodipine Besylate) 5 Mg Tablet, 10 MG PO DAILY for 30 Days, #30 TAB Prov:ANA LILIA ALVES NP 04/06/22 Metoclopramide HCl (Metoclopramide HCl) 5 Mg/5 Ml Solution, 5 MG JT ACHS for GASTROPARESIS for 30 Days, #600 ML 2 Refills Prov:MIGDALIA TIRADO Jr., MD 03/24/22 Ascorbic Acid (Vitamin C) 500 Mg Tablet, 500 MG PO BID for 30 Days, #60 TAB Prov:MIGDALIA TIRADO Jr., MD 03/24/22 [Clotrimazole/Betamethasone Dip] 45 GM CREAM.GM. No Conflict Check, 0 GM TP BID for 30 Days, #30 DAYS 1 Refill Apply to the affected area twice daily. Prov:MIGDALIA TIRADO Jr., MD 03/24/22 Reported Medications Ondansetron (Ondansetron Odt) 8 Mg Tab.rapdis, 8 MG PO Q6HPRN PRN for NAUSEA/VOMITING, TAB 03/22/22 Metformin HCl (Metformin HCl) 500 Mg Tablet, 500 MG PO DAILY, TAB 03/22/22 Fluoxetine HCl (Prozac Soln) 20 Mg/5 Ml Soln, 20 MG PO DAILY, ML 03/22/22 Losartan Potassium (Losartan Potassium) 50 Mg Tablet, 50 MG PO DAILY, TAB 03/22/22 Donepezil HCl (Donepezil HCl) 10 Mg Tablet, 10 MG PO DAILY, TAB 03/22/22 Clopidogrel Bisulfate (Plavix) 75 Mg Tablet, 75 MG PEG DAILY, TAB 01/09/22 Atorvastatin Calcium (LIPITOR) 40 Mg Tablet, 40 MG PEG HS, TAB 01/09/22 Levothyroxine Sodium (Levothyroxine Sodium) 88 Mcg Tablet, 88 MCG PEG DAILY, TAB 01/09/22 Carvedilol (Carvedilol) 12.5 Mg Tablet, 12.5 MG PEG BID, TAB 01/09/22 Aspirin (Aspirin) 81 Mg Tab.chew, 81 MG PEG DAILY, TAB.CHEW 01/09/22 Past Medical History Past Medical History: CVA, Diabetes-Type II, Heart Disease, Hypertension, Hyperthyroid Medical History Other: THYROID Past Surgical History: Unknown Surgical History Other: ABD SURG Family History Family History: Negative Social History Social History: Negative, Lives with family Female( History) History: Not Applicable ROS Dictation CONSTITUTIONAL: No chills, no fever, no weakness, no diaphoresis, no malaise. HEAD/FACE: No signs of trauma. EENT: No eye pain, no blurred vision, no tearing, no double vision, no ear pain, no ear discharge, no nose pain, no nasal congestion, no throat pain, no throat swelling, no mouth pain. RESPIRATORY: Wheezing CARDIOVASCULAR: No chest pain, no edema, no palpitations, no syncope. GASTROINTESTINAL/ABDOMINAL: No abdominal pain, no constipation, no diarrhea, no nausea, no vomiting. GENITOURINARY: No abnormal discharge, no dysuria, no frequent urination, no hematuria. No complaints of pain in the genitals. MUSCULOSKELETAL: No back pain, no gout, no joint pain, no joint swelling, no muscle pain, no muscle stiffness, no neck pain. INTEGUMENTARY: No change in color, no change in hair/nails, no dryness, no lesion, no lumps, no rash. NEUROLOGICAL/PSYCH: No anxiety, not depressed, no emotional problem, no headache, no numbness, no pre-existing deficit, no history of seizures, no tremors, no weakness. HEMATOLOGIC/LYMPHATIC: Not anemic, no history of blood clots, no apparent bleeding, no bruising, glands not swollen. All Systems Negative, Except as Noted. Physical Exam Physical Exam Dictation VITAL SIGNS: Reviewed. GENERAL APPEARANCE: Alert, oriented x3, no acute distress HEAD AND FACE: Non-traumatic. EYES: PERRL, pink conjunctivas, eyelid no trauma, anterior chamber clear. EARS: Pinnas intact and no signs of trauma or erythema. Ear canals clear and no discharge. TMs no erythema. NOSE: No discharge, no bleeding. OROPHARYNX: Mouth normal, teeth no caries, tongue pink. Pharynx clear, no er ythema. Tonsils no exudates, no abscesses noted. Mucous membrane moist. NECK: Supple, non-tender, no thyromegaly, no masses, no JVD, no bruits. BREAST: Deferred. CHEST: No tenderness, no crepitus, no paradoxical movement, no retractions. LUNGS: Clear, well-ventilated, symmetric, no rales, no wheezing, no rhonchi, no stridor, good breath sounds bilaterally. HEART: Regular rate, regular rhythm, no murmur, no gallops. VASCULAR: No peripheral edema. ABDOMEN: Soft, positive bowel sounds, nondistended, no guarding, nontender, no rebound, no masses no hepatomegaly, no splenomegaly, no Velez's sign, no hernias. RECTAL: Deferred. GENITAL: Deferred. NEUROLOGICAL: Normal speech, gross motor function intact, gross sensory function intact. MUSCULOSKELETAL: Neck nontender, full range of motion, back nontender, full range of motion. EXTREMITIES: Nontender, full range of motion. SKIN: Color pink, dry, no turgor, no rash, no lacerations, no abrasions, no contusions. LYMPHATICS: Deferred. Results Laboratory and Microbiology Lab and Micro Result Laboratory Tests Test 10/11/24 17:53 10/11/24 18:39 White Blood Count 7.1 K/uL (4.8-10.8) Red Blood Count 5.20 MIL/uL (4.00-5.50) Hemoglobin 12.6 g/dL (12.0-16.0) Hematocrit 39.6 % (36-48) Mean Corpuscular Volume 76.2 fL (79-99) L Mean Corpuscular Hemoglobin 24.2 pg (27.0-33.0) L Mean Corpuscular Hemoglobin Concent 31.8 g/dL (32.0-36.0) L Red Cell Distribution Width 16.8 % (11.0-15.5) H Platelet Count 292 K/uL (130-400) Mean Platelet Volume 9.6 fL (7.5-10.5) Immature Granulocyte % (Auto) 0.3 % (0-1) Neutrophils (%) (Auto) 58.4 % (40.0-77.0) Lymphocytes (%) (Auto) 21.8 % (21.0-51.0) Monocytes (%) (Auto) 14.3 % (3.0-13.0) H Eosinophils (%) (Auto) 4.4 % (0.0-8.0) Basophils (%) (Auto) 0.8 % (0.0-5.0) Neutrophils # (Auto) 4.1 K/uL (1.8-7.7) Lymphocytes # (Auto) 1.5 K/uL (1.0-4.8) Monocytes # (Auto) 1.0 K/uL (0.1-1.0) Eosinophils # (Auto) 0.31 K/uL (0.00-0.70) Basophils # (Auto) 0.06 K/uL (0.00-0.20) Absolute Immature Granulocyte (auto 0.02 K/uL (0-1) Nucleated Red Blood Cells 0.0 % (0.0-0.19) Red Blood Cell Morphology See comments Sodium Level 136 mmol/L (136-145) Potassium Level 4.2 mmol/L (3.5-5.1) Chloride Level 101 mmol/L (101-111) Carbon Dioxide Level 29 mmol/L (21-32) Blood Urea Nitrogen 14 mg/dL (7-18) Creatinine 0.5 mg/dL (0.5-1.0) Glomerular Filtration Rate Calc 100 mL/min (>90) Random Glucose 136 mg/dL (70-105) H Total Calcium 8.8 mg/dL (8.5-10.1) Total Creatine Kinase 49 U/L (21-232) Troponin I High Sensitivity 12.8 ng/L (4-50) B-Type Natriuretic Peptide 59 pg/mL (0-100) Influenza Type A Antigen Negative For Type A Influenza Type B Antigen Negative For Type B SARS-CoV-2 Antigen (Rapid) PRESUMPTIVE NEGATIVE MDM CC: Cough subjective fever on and off dyspnea Historian: Patient Comorbidities: Previous CVA, diabetes type 2, CAD, hypertension, hypothyroid Limitations by social determinants of health: None Differential diagnosis: Community-acquired pneumonia, viral respiratory infection, bronchitis, other Vital signs: Mild hypertension otherwise stable remained stable in the ER. Oxygen saturation 97% on room air. Labs independently interpreted by me: No leukocytosis, no anemia. Chemistry panel stable. Troponin and BNP stable. Flu negative SARS negative. Chest x-ray shows mild vascular congestion, no focal infiltrates or major cardiomegaly. Independently interpreted by me. Treatment in ED: Methylprednisolone, DuoNeb On re-evaluation patient has improved. Symptoms most consistent with community- acquired pneumonia versus bronchitis. No indication for admission at this time, she is able vital signs stable workup stable O2 saturation no respiratory distress Plan: Prescription for promethazine-codeine, albuterol, nebulizer, azithromycin. ED Course Orders Procedure Category Date Status Time Cbc With Differential LAB 10/11/24 Complete 16:54 B-Type Natriuretic LAB 10/11/24 Complete Peptide 16:54 Cardiac Panel LAB 10/11/24 Complete 16:54 Chest 1vw RAD 10/11/24 Resulted 16:54 12 Lead Ekg Tracing- EKG 10/11/24 Complete Technical 16:54 Ipratropium/Albuterol PHA 10/11/24 Complete Neb (Duoneb) 17:00 Methylprednisolone PHA 10/11/24 Complete Succ 125mg (Solu-Medr 17:00 Basic Metabolic Panel LAB 10/11/24 Complete 16:54 Covid19 (Sars Antigen LAB 10/11/24 Complete Rapid) 16:54 Influenza Type A & B, LAB 10/11/24 Complete Rapid 16:54 Current Medications Medications (Trade) Dose Ordered Sig/Codey Route PRN Reason Start Time Stop Time Status Last Admin Dose Admin Albuterol (DUOneb) 1 udvial ONCE ONCE IH 10/11/24 17:00 10/11/24 17:01 DC 10/11/24 18:23 Methylprednisolone Sodium Succinate (Solu-medROL 125MG) 40 mg ONCE ONCE IVP 10/11/24 17:00 10/11/24 16:58 DC Vital Signs Date Time Temp Pulse Resp B/P (MAP) Pulse Ox O2 Delivery O2 Flow Rate FiO2 10/11/24 18:55 97.9 70 18 157/79 97 Room Air* 0 10/11/24 18:02 97.7 78 18 157/79 97 Room Air* 0 10/11/24 17:17 98.1 70 18 153/80 97 Room Air* 0 10/11/24 17:15 98.1 70 18 153/80 97 Room Air 0 DX & DISP Disposition: Discharge Departure Impression: Primary Impression: Bronchitis Additional Impression: Community acquired pneumonia Condition: Stable Scripts Promethazine HCl/Codeine (Promethazine-Codeine Syrup) 6.25 Mg-10 Mg/5 Ml Syrup 5 ML PO Q4HPRN PRN for cough, #120 ML 0 Refills Prov: HERMELINDA FERNANDEZ DO 10/11/24 Nebulizer (Nebulizer) 1 Each Each EACH , #1 Prov: HERMELINDA FERNANDEZ DO 10/11/24 Albuterol Sulfate (Ventolin Hfa) 90 Mcg Hfa.aer.ad 2 PUFF IH Q4HPRN PRN for wheezing for 30 Days, #18 GM 0 Refills Prov: HERMELINDA FERNANDEZ DO 10/11/24 Albuterol Sulfate (Albuterol Sulfate) 2.5 Mg/3 Ml (0.083 %) Vial.neb 1 VIAL NEB Q4HPRN PRN for wheezing, #150 ML 0 Refills Prov: HERMELINDA FERNANDEZ DO 10/11/24 Azithromycin (Azithromycin) 250 Mg Tablet 1 TAB PO AD for 5 Days, #6 TAB 0 Refills 2 the first day followed by 1 for days 2-5 Prov: HERMELINDA FERNANDEZ DO 10/11/24 Additional Instructions: Symptoms are consistent with bronchitis and community-acquired pneumonia. I have prescribed azithromycin, which is an antibiotic. Please take as prescribed. I have prescribed both an albuterol nebulizer and an albuterol inhaler. These are the same medications. I recommend that you use either an albuterol nebulizer or an albuterol inhaler every 4 hours for the next 48 hours. After that, you can use as needed. I have also prescribed a prescription strength cough medicine to use as needed. Your chest x-ray is unremarkable. Your lab work is stable. Please follow up with your primary doctor for re-evaluation. Referrals: EVAN SHAH DO (PCP) HERMELINDA FERNANDEZ DO October 11, 2024 16:57
[2024-10-11] MEDS ORDERED: Solu-medROL 125MG VIAL IVP ONE (17:00)
--- NOTE | 2024-10-11 17:40 | HMCIMG ---
PORTABLE CHEST RADIOGRAPH INDICATION: Dyspnea/SOB COMPARISON: None FINDINGS: Heart size is normal. Mild calcific plaque is present along the aortic arch metcalf. The pulmonary vascularity and sachin appear normal. No abnormal pulmonary parenchymal opacity or consolidation identified. No significant pleural effusion noted. No pneumothorax detected. IMPRESSION: No radiographic evidence for any acute cardiopulmonary process.
[2024-10-11 17:58] LABS: BASOPHILS # (AUTO) 0.06 K/uL (0.00-0.20); BASOPHILS % (AUTO) 0.8 % (0.0-5.0); EOSINOPHILS # (AUTO) 0.31 K/uL (0.00-0.70); EOSINOPHILS % (AUTO) 4.4 % (0.0-8.0); HEMATOCRIT 39.6 % (36-48); IMMATURE GRANULOCYTE ABSOLUTE 0.02 K/uL (0-1); LYMPHOCYTES # (AUTO) 1.5 K/uL (1.0-4.8); LYMPHOCYTES % (AUTO) 21.8 % (21.0-51.0); MEAN CORPUSCULAR HEMOGLOBIN 24.2 pg (27.0-33.0); MEAN CORPUSCULAR HGB CONC 31.8 g/dL (32.0-36.0); MEAN CORPUSCULAR VOLUME 76.2 fL (79-99); MONOCYTES % (AUTO) 14.3 % (3.0-13.0); NEUTROPHILS # (AUTO) 4.1 K/uL (1.8-7.7); NEUTROPHILS % (AUTO) 58.4 % (40.0-77.0); PLATELET COUNT (AUTO) 292 K/uL (130-400); RED CELL DISTRIBUTION WIDTH 16.8 % (11.0-15.5); WHITE BLOOD COUNT (AUTO) 7.1 K/uL (4.8-10.8)
[2024-10-11 18:17] LABS: CREATININE 0.5 mg/dL (0.5-1.0); POTASSIUM 4.2 mmol/L (3.5-5.1)
[2024-10-11] MEDS: IpraTROPium/alBUTERol SULFATE 3 ML SOLUTION IH ONE (18:23)
[2024-10-11 18:38] LABS: B-TYPE NATRIURETIC PEPTIDE 59 pg/mL (0-100)
[2024-10-11] MEDS ORDERED: ALBU18HF7 IH (18:52)
[2024-10-11] MEDS ORDERED: CODE473S6 PO (18:52)
[2024-10-11] MEDS ORDERED: ALBU2.5V2 NEB (18:52)
[2024-10-11] MEDS ORDERED: AZIT250T9 PO (18:52)
[2024-10-11] MEDS ORDERED: NEBU-305 MC (18:52)
[2024-10-11 18:55] VITALS: BP 157/79; PULSE 70; RESP 18; TEMP 97.9; O2SAT 97
[2024-10-11 19:04] LABS: COVID19 (SARS ANTIGEN RAPID) PRESUMPTIVE NEGATIVE (NEGATIVE); INFLUENZA TYPE A Negative For Type A (NEGATIVE); INFLUENZA TYPE B Negative For Type B (NEGATIVE)
--- NOTE | 2024-10-12 08:43 | EKG ---
[facility] Test Date: 2024-10-11 Test Time: 17:40:39 Pat Name: MICHELLE SALAZAR Department: [facility] [address] Room: Gender: Female Jd Edwards Consultant: [id number] : 1950 Requested By: HERMELINDA FERNANDEZ Order Number: [id number] Reading MD: Measurements Intervals [place] Rate: 75 P: 28 DC: 177 QRS: -22 QRSD: 65 T: 94 QT: 444 QTc: 495 Interpretive Statements Sinus rhythm Probable left atrial enlargement LVH with secondary repolarization abnormality No previous ECG available for comparison Please click the below link to view image of tracing.
== END 2024-10-11 18:58 | disposition home or self-care (01) ==
LOC: EDH 16:49
DX: J40 Bronchitis, not specified as acute or chronic (principal); J18.9 Pneumonia, unspecified organism; E03.9 Hypothyroidism, unspecified; E11.9 Type 2 diabetes mellitus without complications; I10 Essential (primary) hypertension; I25.10 Atherosclerotic heart disease of native coronary artery without angina pectoris; Z79.02 Long term (current) use of antithrombotics/antiplatelets; Z79.82 Long term (current) use of aspirin; Z79.84 Long term (current) use of oral hypoglycemic drugs; Z79.890 Hormone replacement therapy; Z79.899 Other long term (current) drug therapy; Z86.73 Personal history of transient ischemic attack (TIA), and cerebral infarction without residual deficits; Z20.822 Contact with and (suspected) exposure to COVID-19
CPT/HCPCS: 36415; 71045; 80048; 82550; 83880; 84484; 85025; 87426; 87804; 93005; 99285